=== PATIENT | female | born 1940 | race Caucasian/White ===

== ENCOUNTER → 2017-04-25 | Outpatient (CLI) | payer MEDICARE | END | disposition home or self-care (01) | LOC: SLP 20:35 | PROVIDERS: ATTEND Internal Medicine Cardiovascular Disease | DX: G47.33 Obstructive sleep apnea (adult) (pediatric) (principal) | CPT/HCPCS: 95810 ==

== ENCOUNTER → 2017-05-02 | Outpatient (CLI) | payer MEDICARE | END | disposition home or self-care (01) | LOC: SLP 20:31 | PROVIDERS: ATTEND Internal Medicine Cardiovascular Disease | DX: G47.33 Obstructive sleep apnea (adult) (pediatric) (principal) | CPT/HCPCS: 95811 ==

== ENCOUNTER → 2018-06-12 | Outpatient (CLI) | payer MEDICARE ==
[~2018-06-12] MED LIST: ALBUTEROL SULFATE 0.083% 2.5 MG/3 ML INH IH ONE
== END | disposition home or self-care (01) ==
LOC: RESP 08:55
PROVIDERS: ATTEND Internal Medicine
DX: J45.909 Unspecified asthma, uncomplicated (principal); R06.00 Dyspnea, unspecified
CPT/HCPCS: 94060; 94727; 94729

== ENCOUNTER 2024-05-19 13:01 | Emergency (ER) | payer MEDICARE ==
[~2024-05-19] VITALS: Ht 149.9 cm; Wt 59.0 kg
--- NOTE | 2024-05-19 13:43 | ERN ---
ED Note History of Present Illness Stated Complaint: MECHANICAL FALL Chief Complaint: Mechanical Fall Time Seen by MD: 13:34 Dictation: PATIENT IS AN 83-YEAR-OLD FEMALE WITH COMPLAINTS OF LEFT ANTERIOR SHOULDER AND LEFT HUMERUS PAIN STATUS POST A SAME LEVEL TRIP FALL THIS MORNING AT 10:00 O'CLOCK AT [facility]. SHE STATES SHE HAD FLOWN IN AND WAS WALKING TRIPPED LANDED ON HER LEFT ARM AND SHOULDER. HIT HER UPPER LIP HOWEVER NO NECK PAIN NO HEADACHE NO BLOOD THINNERS AND NO TRAUMA ALERT CRITERIA. SHE HAS NO MIDLINE SPINE PAIN FULL WEIGHT-BEARING TO BOTH EXTREMITIES AND NO PELVIC OR HIP PAIN. TEETH ARE INTACT. Allergies: Coded Allergies: No Known Drug Allergies (Unverified Allergy, Unknown, 05/19/24) Home Meds Active Scripts Acetaminophen with Codeine (Acetaminophen-Cod #3 Tablet) 300 Mg-30 Mg Tablet, 1 TAB PO Q4H PRN for MODERATE TO SEVERE, #10 TAB 0 Refills Prov:AZIZALENIN PRESSURIZER 05/19/24 Past Medical History Past Medical History: Asthma, Diabetes-Type II, Heart Disease, [place] Additional Past Medical Hx: HX OF BREAST CA Surgical History: Hysterectomy, Tonsillectomy Surgical History Other: ,LUMPECTOMY, HEART STENT History: Not Applicable RN Note Reviewed/Agreed w/PFSH: Yes Review of System Dictation CONSTITUTIONAL: NEGATIVE EXCEPT FOR HPI HEAD/FACE: NEGATIVE EXCEPT FOR HPI EENT: NEGATIVE EXCEPT FOR HPI MIDLINE UPPER LIP CONTUSION INTERNAL RESPIRATORY: NEGATIVE EXCEPT FOR HPI GASTROINTESTINAL/ABDOMINAL: NEGATIVE EXCEPT FOR HPI GENITOURINARY: NEGATIVE EXCEPT FOR HPI MUSCULOSKELETAL: NEGATIVE EXCEPT FOR HPI LEFT DELTOID AND HUMERUS PAIN INTEGUMENTARY: NEGATIVE EXCEPT FOR HPI NEUROLOGICAL/PSYCH: NEGATIVE EXCEPT FOR HPI HEMATOLOGIC/LYMPHATIC: NEGATIVE EXCEPT FOR HPI ALL SYSTEMS NEGATIVE, EXCEPT NOTED ABOVE. 13 POINT REVIEW OF SYSTEMS ASSESSED AND ALL NEGATIVE EXCEPT FOR ABOVE. Initial Vital Sign VS Vital Signs Date Time Temp Pulse Resp B/P (MAP) Pulse Ox O2 Delivery O2 Flow Rate FiO2 05/19/24 13:09 100.0 78 16 180/78 96 Room Air 0 05/19/24 17:19 21 Physical Exam Dictation EXAM VITAL SIGNS REVIEWED GENERAL APPEARANCE: ALERT, ORIENTED X 3, MILD ACUTE DISTRESS, WELL DEVELOPED, NOURISHED. 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 EYES: PERRL, PINK CONJUNCTIVAS, EYELID NO TRAUMA, ANTERIOR CHAMBER WITH ARCUS SENILIS. EARS: PINNAS INTACT AND NO SIGNS OF TRAUMA OR ERYTHEMA EAR CANALS CLEAR AND NO D ISCHARGE TM NO ERYTHEMA NOSE: NO DISCHARGE, NO BLEEDING. OROPHARYNX: TEETH INTACT, TMJ NEGATIVE BILATERALLY, INTERNAL UPPER LIP CONTUSION NOTED NO MANDIBULAR TENDERNESS PHARYNX CLEAR,NO ERYTHEMA, TONSILS NO EXUDATES, NO ABSCESSES NOTED, MUCOUS MEMBRANE MOIST NECK: SUPPLE, NON-TENDER, NO THYROMEGALY, NO MASSES, NO JVD, NO BRUITS BREAST:DEFERRED CHEST:NO TENDERNESS, NO CREPITUS, NO PARADOXICAL MOVEMENT, NO RETRACTIONS LUNGS:CLEAR, WELL-VENTILATED, SYMMETRIC, NO RALES, NO WHEEZING, NO RHONCHI, NO STRIDOR, GOOD BREATH SOUNDS BILATERALLY HEART: REGULAR RATE, REGULAR RHYTHM, NO MURMUR, NO GALLOPS VASCULAR: NO PERIPHERAL EDEMA, ABDOMEN: SOFT, POSITIVE BOWEL SOUNDS, NONDISTENDED, NO GUARDING, NONTENDER, NO REBOUND, NO MASSES NO HEPATOMEGALY, NO SPLENOMEGALY, NO GRIMM'S SIGN, NO HERNIAS. RECTAL: DEFERRED GENITAL: DEFERRED NEUROLOGICAL: NORMAL SPEECH, MOTOR FUNCTION INTACT, SENSORY FUNCTION INTACT MUSCULOSKELETAL: NECK NONTENDER, FULL RANGE OF MOTION, BACK NONTENDER, FULL RANGE OF MOTION, EXTREMITIES: PAIN TENDERNESS TO LEFT ANTERIOR DELTOID AND UPPER HUMERUS. DECREASED RANGE OF MOTION SECONDARY TO PAIN DISTAL NEUROVASCULAR CMS INTACT SKIN: COLOR PINK, DRY, NO TURGOR, NO RASH, NO LACERATIONS, NO ABRASIONS, NO CONTUSIONS. LYMPHATIC: DEFERRED Results (Laboratory/Radiology) Laboratory/Radiology Exam Type: HUMERUS 2+VWS LT Clinical Information: LEFT MEDIAL HUMERUS PAIN STATUS POST FALL THIS MORE Comparison: None Findings: The bone examination is unremarkable. No fractures or dislocations are seen. No radiopaque foreign bodies are noted. Soft tissues are preserved. IMPRESSION: Normal examination. Comparison: None FINDINGS: The acromioclavicular joint shows hypertrophy, which may impinge upon the rotator cuff tendon. The glenohumeral joint is preserved. Visualized portions of the humerus, the scapula, and the clavicle as well as the upper ribcage are unremarkable. No pulmonary pathology is noted in the visualized portions of the upper lobe. The soft tissues are preserved. There are no other gross abnormalities. 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 Labs Reviewed?: Yes ED Course ED Course Orders Procedure Category Date Status Time Shoulder Comp 2+Vws Lt RAD 05/19/24 Resulted 13:40 Humerus 2+Vws Lt RAD 05/19/24 Resulted 13:40 Acetaminophen 500mg PHA 05/19/24 Complete Tab (Tylenol 500mg T 14:00 Current Medications Medications (Trade) Dose Ordered Sig/Zulma Route PRN Reason Start Time Stop Time Status Last Admin Dose Admin Acetaminophen (TYLenol 500MG TAB) 1,000 mg ONCE ONCE PO 05/19/24 14:00 05/19/24 14:01 DC 05/19/24 17:18 Vital Signs Date Time Temp Pulse Resp B/P (MAP) Pulse Ox O2 Delivery O2 Flow Rate FiO2 05/19/24 17:19 98.6 75 16 148/58 97 Room Air* 0 21 05/19/24 13:09 100.0 78 16 180/78 96 Room Air 0 Medical Decision Making MDM MEDICAL DISCHARGE MAKING ON X-RAYS OF LEFT SHOULDER AND PROXIMAL HUMERUS. X-RAYS NEGATIVE EXCEPT FOR DEGENERATIVE CHANGES PATIENT DISCHARGED HOME WITH SHOULDER CONTUSION TOLD TO FOLLOW UP WITH HER PRIMARY CARE DOCTOR IN THE NEXT 2-3 DAYS DX & DISP Disposition: Discharge Departure Impression: Primary Impression: Contusion of left shoulder, initial encounter Additional Impression: Fall Condition: Stable Scripts Acetaminophen with Codeine (Acetaminophen-Cod #3 Tablet) 300 Mg-30 Mg Tablet 1 TAB PO Q4H PRN for MODERATE TO SEVERE, #10 TAB 0 Refills Prov: LENNI ERVIN PRESSURIZER 05/19/24 Additional Instructions: Follow-up with primary care provider in 1 to 2 days. Take medications as directed here in the emergency room. Okay to continue home medications unless otherwise discussed during your visit in the emergency room today. Return to your nearest emergency room if symptoms worsen or if there is no improvement. Call 911 if you need immediate assistance. Take Tylenol or Motrin [id number] as needed and if no contraindications are present. Increase oral hydration. A wound culture or urine culture was ordered here in the emergency room department please follow-up with primary care provider and advise them to get repeat ports from our facility. If you had any Ashok wrap/splints that were applied here, please do not remove them until you see your primary care or specialty. Cool compresses to pain three to 4 times a day. Take Tylenol with codeine as needed for severe pain. See your primary care doctor for follow up and manage Referrals: SELF,REFERRAL (PCP) Time of Disposition: 16:35 I have reviewed the case, and I agree with, Diagnosis and Plan I performed the substantive portion of the visit. I have reviewed and personally made and approve the management plan that is documented in the notes by myself or the JESSE. I acknowledge full responsibility for the patient's management plan. LENIN ERVIN NP May 19, 2024 13:43 EMPERATRIZ WHITAKER MD May 19, 2024 18:31
--- NOTE | 2024-05-19 15:23 | HMCIMG ---
Exam Type: SHOULDER COMP 2+VWS LT Clinical Information: LEFT ANTERIOR SHOULDER PAIN STATUS POST FALL THIS MORNING Comparison: None FINDINGS: The acromioclavicular joint shows hypertrophy, which may impinge upon the rotator cuff tendon. The glenohumeral joint is preserved. Visualized portions of the humerus, the scapula, and the clavicle as well as the upper ribcage are unremarkable. No pulmonary pathology is noted in the visualized portions of the upper lobe. The soft tissues are preserved. There are no other gross abnormalities. 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
--- NOTE | 2024-05-19 15:23 | HMCIMG ---
Exam Type: HUMERUS 2+VWS LT Clinical Information: LEFT MEDIAL HUMERUS PAIN STATUS POST FALL THIS MORE Comparison: None Findings: The bone examination is unremarkable. No fractures or dislocations are seen. No radiopaque foreign bodies are noted. Soft tissues are preserved. IMPRESSION: Normal examination.
[2024-05-19] MEDS ORDERED: ACET-2079 PO (16:36)
[2024-05-19] MEDS: acetaMINOPHEN 500 MG TABLET PO ONE (17:18)
[2024-05-19 17:19] VITALS: BP 148/58; PULSE 75; RESP 16; TEMP 98.6; O2SAT 97
== END 2024-05-19 17:32 | disposition home or self-care (01) ==
LOC: EDH 13:01
DX: S40.012A Contusion of left shoulder, initial encounter (principal); E11.9 Type 2 diabetes mellitus without complications; J45.909 Unspecified asthma, uncomplicated; Z85.3 Personal history of malignant neoplasm of breast; Z90.710 Acquired absence of both cervix and uterus; Z95.5 Presence of coronary angioplasty implant and graft; W01.0XXA Fall on same level from slipping, tripping and stumbling without subsequent striking against object, initial encounter; Y93.01 Activity, walking, marching and hiking; Y92.520 Airport as the place of occurrence of the external cause; Y99.8 Other external cause status
CPT/HCPCS: 73030; 73060; 99284

== ENCOUNTER → 2024-07-08 | Outpatient (CLI) | payer MEDICARE ==
[~2024-07-08] MED LIST changes: +ACET-2079 PO; -ALBUTEROL SULFATE 0.083% 2.5 MG/3 ML INH IH ONE
== END | disposition home or self-care (01) ==
LOC: SHCH 08:07
PROVIDERS: ATTEND Internal Medicine Cardiovascular Disease
DX: I08.3 Combined rheumatic disorders of mitral, aortic and tricuspid valves (principal); I10 Essential (primary) hypertension; I25.2 Old myocardial infarction; I25.10 Atherosclerotic heart disease of native coronary artery without angina pectoris
CPT/HCPCS: 93306